=== PATIENT | male | born 1945 | race Caucasian/White ===

== ENCOUNTER 2019-11-10 06:41 | Day surgery (SDC) | payer MEDICARE ==
[~2019-11-10 06:41] MED LIST: FINASTERIDE5 MG PO; MULTI VIT PO; TAMSULOSIN HCL0.4 MG PO
[2019-11-10 09:02] VITALS: BP 121/79
== END 2019-11-10 09:14 | disposition home or self-care (01) ==
LOC: ENDO 06:41 → ORM 07:30 → ENDO 07:30 → ORM 08:00 → ENDO 08:00 → ORM 09:00 → ENDO 09:14
PROVIDERS: ATTEND Surgery
PROC: 0DJD8ZZ Inspection of Lower Intestinal Tract, Via Natural or Artificial Opening Endoscopic (ICD-10-PCS; principal; 2019-11-10)
DX: Z12.11 Encounter for screening for malignant neoplasm of colon (principal); K62.89 Other specified diseases of anus and rectum; K64.8 Other hemorrhoids; Z11.59 Encounter for screening for other viral diseases